=== PATIENT | male | born 2000 | race Caucasian/White ===

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

== ENCOUNTER 2022-10-03 17:33 | Emergency (ER) | payer BC, OTHER ==
[2022-10-03 17:40] VITALS: BP 120/76; PULSE 104; TEMP 98.4
--- NOTE | 2022-10-03 17:56 | ED ---
Chest Pain HPI <Ivette Jacinto - Last Filed: 10/03/22 20:07> - General Source: patient, RN notes reviewed Mode of arrival: ambulatory Limitations: no limitations <Velma Kimble - Last Filed: 10/03/22 21:58> - General Chief Complaint: Chest Pain Stated Complaint: Chest pain Time Seen by Provider: 10/03/22 17:42 - History of Present Illness Initial Comments: 22-year-old male with no significant past medical history presents the emergency department with chief complaint of chest pain. He reports that he has had episodes of chest pain that come and go that lasts a few minutes for the last 2 weeks. He reports he will get chest pain occasionally at rest however he will also have these episodes when he moves. He has been taking Tums and omeprazole with mild relief of his symptoms. Denies fever, chills, headache, cough, shortness of breath, palpitations, abdominal pain, nausea, vomiting, diarrhea. Denies any chest pain while obtaining the history. (Velma Kimble) - Related Data Home Medications Medication Instructions Recorded Confirmed No Known Home Medications 10/03/22 10/03/22 Allergies Allergy/AdvReac Type Severity Reaction Status Date / Time No Known Allergies Allergy Verified 10/03/22 19:25 Review of Systems ROS Other: All systems not noted in ROS Statement are negative. <Ivette Jacinto - Last Filed: 10/03/22 20:07> ROS Other: All systems not noted in ROS Statement are negative. <Velma Kimble - Last Filed: 10/03/22 21:58> ROS Statement: Those systems with pertinent positive or pertinent negative responses have been documented in the HPI. EKG Findings - EKG Comments: EKG Findings:: I interpreted the following: EKG performed at 17:43. Rate 89 bpm and normal sinus rhythm. RI interval 183 QRS duration 100, QT/QTc 333/380, <Velma Kimble - Last Filed: 10/03/22 21:58> Past Medical History Additional Past Medical History / Comment(s): Heart valve issues History of Any Multi-Drug Resistant Organisms: None Reported Past Surgical History: No Surgical Hx Reported Past Psychological History: No Psychological Hx Reported Smoking Status: Current every day smoker Past Alcohol Use History: None Reported Past Drug Use History: None Reported <Velma Kimble - Last Filed: 10/03/22 21:58> General Exam Limitations: no limitations General appearance: alert, in no apparent distress Head exam: Present: atraumatic, normocephalic, normal inspection Eye exam: Present: normal appearance, PERRL, EOMI. Absent: scleral icterus, conjunctival injection, periorbital swelling ENT exam: Present: normal exam, mucous membranes moist Neck exam: Present: normal inspection. Absent: tenderness, meningismus, lymphadenopathy Respiratory exam: Present: normal lung sounds bilaterally. Absent: respiratory distress, wheezes, rales, rhonchi, stridor Cardiovascular Exam: Present: regular rate, normal rhythm, normal heart sounds. Absent: systolic murmur, diastolic murmur, rubs, gallop, clicks GI/Abdominal exam: Present: soft, normal bowel sounds. Absent: distended, tenderness, guarding, rebound, rigid Extremities exam: Present: normal inspection, full ROM, normal capillary refill. Absent: tenderness, pedal edema, joint swelling, calf tenderness Back exam: Present: normal inspection Neurological exam: Present: alert, oriented X3, CN II-XII intact Psychiatric exam: Present: normal affect, normal mood Skin exam: Present: warm, dry, intact, normal color. Absent: rash <Velma Kimble - Last Filed: 10/03/22 21:58> Course <Velma Kimble - Last Filed: 10/03/22 21:58> Vital Signs 10/03/22 10/03/22 17:38 20:37 Temperature 98.4 F Pulse Rate 104 H Respiratory 20 18 Rate Blood Pressure 120/76 O2 Sat by Pulse 99 Oximetry - Reevaluation(s) Reevaluation #1: 10/03/22 19:59 Patient reevaluated and updated on results. Patient's agreeable with the plan for discharge. (Velma Kimble) Chest Pain MDM <Velma Kimble - Last Filed: 10/03/22 21:58> - MDM Was pt. sent in by a medical professional or institution (, PA, SOFT WATER MECHANIC, urgent care, hospital, or [facility]...) When possible be specific @ -[No] Did you speak to anyone other than the patient for history (EMS, parent, family, police, friend...)? What history was obtained from this source @ -[No] Did you review nursing and triage notes (agree or disagree)? Why? @ -[I reviewed and agree with nursing and triage notes] Were old charts reviewed (outside hosp., previous admission, EMS record, old EKG, old radiological studies, urgent care reports/EKG's, [facility] records)? Report findings @ -[No old charts were reviewed] Differential Diagnosis (chest pain, altered mental status, abdominal pain women, abdominal pain men, vaginal bleeding, weakness, fever, dyspnea, syncope, headache, dizziness, GI bleed, back pain, seizure, CVA, palpatations, mental health)? @ -[not applicable] EKG interpreted by me (3pts min.). @ -[As above] X-rays interpreted by me (1pt min.). @ Does x-ray negative for any evidence of acute pleural process CT interpreted by me (1pt min.). @ -[None done] U/S interpreted by me (1pt. min.). @ -[None done] What testing was considered but not performed or refused? (CT, X-rays, U/S, labs)? Why? @ -[None] What meds were considered but not given or refused? Why? @ -[None] Did you discuss the management of the patient with other professionals (professionals i.e. , PA, SOFT WATER MECHANIC, lab, RT, psych nurse, social studies teacher, search advertising strategist, teacher, chief green officer, embedded case manager)? Give summary @ -[No] Was smoking cessation discussed for >3mins.? @ -[No] Was critical care preformed (if so, how long)? @ -[No] Were there social determinants of health that impacted care today? How? (Ho melessness, low income, unemployed, alcoholism, drug addiction, transportation, low edu. Level, literacy, decrease access to med. care, [facility], rehab)? @ -[No] Was there de-escalation of care discussed even if they declined (Discuss DNR or withdrawal of care, Hospice)? DNR status @ -[No] What co-morbidities impacted this encounter? (DM, HTN, Smoking, COPD, CAD, Cancer, CVA, ARF, Chemo, Hep., AIDS, mental health diagnosis, sleep apnea, morbid obesity)? @ -[None] Was patient admitted / discharged? Hospital course, mention meds given and route, prescriptions, significant lab abnormalities, going to OR and other pertinent info. @ -22-year-old male presents to the emergency department with chest pain. Patient had a thorough history and physical performed. Physical exam essentially unremarkable, heart rate and rhythm unremarkable, lungs sounds clear to auscultation bilaterally, abdomen soft and nontender. Patient had lab work and imaging performed within normal limits. I discussed the results with the patient who agrees with the plan for observation/admission. All questions and concerns were addressed. Return precautions were discussed. With recommend close follow-up with cardiology within 1 week. I discussed the case with JANEE Correia who agrees with plan of care Undiagnosed new problem with uncertain prognosis? @ -[No] Drug Therapy requiring intensive monitoring for toxicity (Heparin, Nitro, Insulin, Cardizem)? @ -[No] Were any procedures done? @ -[No] Diagnosis/symptom? @ -chest pain Acute, or Chronic, or Acute on Chronic? @ -acute Uncomplicated (without systemic symptoms) or Complicated (systemic symptoms)? @ -uncomplicated Side effects of treatment? @ -[No] Exacerbation, Progression, or Severe Exacerbation? @ -[No] Poses a threat to life or bodily function? How? (Chest pain, [place], [place], pneumonia, PE, COPD, DKA, ARF, appy, cholecystitis, CVA, Diverticulitis, Homicidal, Suicidal, threat to staff... and all critical care pts) @ -low likelihood (Velma Kimble) Disposition <Ivette Jacinto - Last Filed: 10/03/22 20:07> Is patient prescribed a controlled substance at d/c from ED?: No Time of Disposition: 20:00 <Velma Kimble - Last Filed: 10/03/22 21:58> Clinical Impression: Chest pain Disposition: HOME SELF-CARE Condition: Stable Instructions (If sedation given, give patient instructions): Chest Pain (ED) Additional Instructions: These return to the nearest emergency department if worsening symptoms of, chest pain palpitations, shortness breath develop. Referrals: Evans Hernandez MD [STAFF PHYSICIAN] - 1-2 days None,Stated [Primary Care Provider] - 1-2 days [facility] [Provider Group] - 1-2 days
[2022-10-03] MEDS ORDERED: SODIUM CHLORIDE 0.9% 1,000 ML IV ONE (17:57)
[2022-10-03 18:43] LABS: African American GFR (CKD) >90 (>60 ml/min/1.73 sqM); Anion Gap 7 mmol/L; Blood Urea Nitrogen 16 mg/dL (9-20); Calcium 10.1 mg/dL (8.4-10.2); Carbon Dioxide 31 mmol/L (22-30); Chloride 103 mmol/L (98-107); Glucose 97 mg/dL (74-99); Non-African American GFR(CKD) >90 (>60 ml/min/1.73 sqM); Sodium 141 mmol/L (137-145)
[2022-10-03 18:53] LABS: Basophils % (A) 0 %; Eosinophils # (A) 0.1 k/uL (0-0.7); Eosinophils % (A) 1 %; HCT 47.5 % (39.0-53.0); HGB 16.9 gm/dL (13.0-17.5); Lymphocytes # (A) 3.1 k/uL (1.0-4.8); Lymphocytes % (A) 34 %; MCH 29.6 pg (25.0-35.0); MCHC 35.6 g/dL (31.0-37.0); MCV 83.1 fL (80.0-100.0); Mean Platelet Volume 7.4; Monocytes # (A) 0.5 k/uL (0-1.0); Monocytes % (A) 6 %; Neutrophils % (A) 56 %; Platelet Count 239 k/uL (150-450); RBC 5.72 m/uL (4.30-5.90); RDW 12.9 % (11.5-15.5)
--- NOTE | 2022-10-03 19:44 | XR ---
EXAMINATION TYPE: XR chest 2V DATE OF EXAM: 10/03/2022 COMPARISON: NONE HISTORY: Pain TECHNIQUE: 2 view FINDINGS: Heart and mediastinum are normal. Lungs are clear. Diaphragm is normal. Bony thorax appears normal. IMPRESSION: Normal chest.
[2022-10-03 20:37] VITALS: RESP 18
== END 2022-10-03 20:37 | disposition home or self-care (01) ==
LOC: EC 17:33
DX: R07.9 Chest pain, unspecified (principal); F17.200 Nicotine dependence, unspecified, uncomplicated
CPT/HCPCS: 36415; 71046; 80048; 84484; 85025; 93005; 96360; 99285

== ENCOUNTER 2024-08-14 14:35 | Emergency (ER) | payer BC, OTHER ==
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
[2024-08-14] MEDS: LIDOCAINE 1% INJ 10MG/ML (20 ML MDV) SQ ONE (15:07)
[2024-08-14] MEDS: DIPH,PERTUS(ACELL)TETVAC-LF 0.5 ML VIAL IM ONE (15:08)
[2024-08-14] MEDS: LIDOCAINE/EPINEPHR/TETRACAINE 5 ML BOTTLE TOPICAL ONE (15:26)
[2024-08-14] MEDS: TOPICAL SKIN ADHESIVE 1 EACH AMP TOPICAL ONE (15:26)
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
[2024-08-14 16:22] VITALS: BP 128/86; PULSE 88; RESP 18; TEMP 98.6
== END 2024-08-14 16:22 | disposition home or self-care (01) ==
LOC: EC 14:35
DX: S01.112A Laceration without foreign body of left eyelid and periocular area, initial encounter (principal); F17.200 Nicotine dependence, unspecified, uncomplicated; Z23 Encounter for immunization; Y04.0XXA Assault by unarmed brawl or fight, initial encounter
CPT/HCPCS: 90471; 12011; 99283; 70150; 90715; J2003; 12001